=== PATIENT | male | born 1995 | race Asian ===

== ENCOUNTER 2019-12-30 13:32 | Outpatient (CLI) | payer MEDICAID, SELFPAY ==
[2019-12-30 14:04] LABS: HCT 45.4 % (40.0-50.0); HGB 15.5 g/dL (13.5-17.5); Mean Corp. HGB Concentration 34.1 g/dL (32.0-36.0); Mean Corpuscular Hemoglobin 28.7 pg (27.0-33.0); Mean Corpuscular Volume 83.9 fL (80-95); Mean Platelet Volume 9.5 fL (8.0-11.0); Platelet Count 272 x1000/uL (130-400); RBC 5.41 m/cumm (4.50-6.00); RBC Distribution Width 11.5 % (11.8-14.1); White Blood Cell Count 7.37 k/cumm (4.4-10.8)
[2019-12-30 14:45] LABS: BUN 14 mg/dL (7-18); CREATININE 0.68 mg/dL (0.70-1.30)
== END 2019-12-30 13:52 ==
PROVIDERS: PCP Nurse Practitioner Family; Visit Provider Dermatology
DX: L40.0 Psoriasis vulgaris (principal); Z79.899 Other long term (current) drug therapy
CPT/HCPCS: 36415; 84520; 85027; 82565

== ENCOUNTER 2020-03-30 04:29 | Outpatient (CLI) | payer MEDICAID, SELFPAY ==
[2020-03-30 11:54] LABS: HCT 45.8 % (40.0-50.0); HGB 15.4 g/dL (13.5-17.5); Mean Corp. HGB Concentration 33.6 g/dL (32.0-36.0); Mean Corpuscular Hemoglobin 28.8 pg (27.0-33.0); Mean Corpuscular Volume 85.6 fL (80-95); Mean Platelet Volume 9.7 fL (8.0-11.0); Platelet Count 280 x1000/uL (130-400); RBC 5.35 m/cumm (4.50-6.00); RBC Distribution Width 11.4 % (11.8-14.1); White Blood Cell Count 6.02 k/cumm (4.4-10.8)
[2020-03-30 11:55] LABS: BUN 12 mg/dL (7-18); CREATININE 0.72 mg/dL (0.70-1.30)
== END 2020-03-30 04:49 ==
PROVIDERS: PCP Nurse Practitioner Family; Visit Provider Dermatology
DX: L40.0 Psoriasis vulgaris (principal); Z79.899 Other long term (current) drug therapy
CPT/HCPCS: 36415; 84520; 85027; 82565

== ENCOUNTER 2021-09-21 02:30 | Outpatient (CLI) | payer MEDICAID, SELFPAY ==
[2021-09-21 13:38] LABS: Anion Gap 8.3 mmol/L (3-11); BUN 11 mg/dL (7-18); CO2 29.7 mmol/L (21.0-32.0); CREATININE 0.6 mg/dL (0.70-1.30); Calcium 9.3 mg/dL (8.5-10.1); Calculated LDL 104 mg/dL (<100); Chloride 97 mmol/L (98-107); Cholesterol 208 mg/dL (<200); Glucose 237 mg/dL (74-106); HDL Cholesterol 40 mg/dL (40-60); Potassium 4.4 mmol/L (3.5-5.1); Sodium 135 mmol/L (136-145); Triglyceride 323 mg/dL (<150)
[2021-09-22 11:18] LABS: Hepatitis C Ab w Rflx HCV PCR Negative (Negative)
[2021-09-22 11:22] LABS: HIV-1/2 Ag & Ab Screen Negative (Negative)
== END 2021-09-21 02:31 | disposition home or self-care (01) ==
LOC: LBO 02:30
PROVIDERS: PCP Nurse Practitioner Family; Visit Provider Nurse Practitioner Family
DX: Z13.1 Encounter for screening for diabetes mellitus (principal); Z13.220 Encounter for screening for lipoid disorders; Z11.4 Encounter for screening for human immunodeficiency virus [HIV]; Z11.59 Encounter for screening for other viral diseases
CPT/HCPCS: 36415; 80048; 80061; 86803; 87389

== ENCOUNTER 2021-10-03 03:58 | Outpatient (CLI) | payer MEDICAID, SELFPAY ==
[2021-10-03 20:40] LABS: Hemoglobin A1C 8.8 % (<5.7)
== END 2021-10-03 03:59 | disposition home or self-care (01) ==
LOC: LBO 03:58
PROVIDERS: PCP Nurse Practitioner Family; Visit Provider Nurse Practitioner Family
DX: R73.01 Impaired fasting glucose (principal)
CPT/HCPCS: 36415; 83036

== ENCOUNTER 2021-11-01 02:00 | Outpatient (CLI) | payer MEDICAID, SELFPAY ==
[2021-11-06 12:10] LABS: ZnT8 Antibodies <15.0 U/mL (<15.0)
== END 2021-11-01 02:01 | disposition home or self-care (01) ==
LOC: LBO 02:00
PROVIDERS: PCP Nurse Practitioner Family; Visit Provider Nurse Practitioner Family
DX: E11.9 Type 2 diabetes mellitus without complications (principal)
CPT/HCPCS: 36415; 86337; 86341

== ENCOUNTER 2022-01-19 10:31 | Outpatient (REF) | payer MEDICAID, SELFPAY ==
[2022-01-19 16:47] LABS: COMMENT (LAB VIEW ONLY) 45.08 mg/dL; Microalb ug/mg Crea 56.3 ug/mg Cr
== END 2022-01-19 10:32 | disposition home or self-care (01) ==
LOC: LBN 10:31
PROVIDERS: PCP Nurse Practitioner Family; Visit Provider Nurse Practitioner Family
DX: E11.9 Type 2 diabetes mellitus without complications (principal)
CPT/HCPCS: 82043; 82570

== ENCOUNTER 2022-12-06 01:58 | Outpatient (CLI) | payer MEDICAID, SELFPAY ==
[2022-12-06 13:40] LABS: Hemoglobin A1C 6.3 % (<5.7)
[2022-12-06 14:16] LABS: COMMENT (LAB VIEW ONLY) 48.85 mg/dL
[2022-12-06 14:25] LABS: ALT 25 U/L (16-63); AST 27 U/L (15-37); Albumin 4.4 g/dL (3.4-5.0); Alkaline Phosphatase 43 U/L (46-116); Anion Gap 10.1 mmol/L (3-11); BUN 10 mg/dL (7-18); Bilirubin, Total 0.9 mg/dL (0.2-1.0); CO2 27.9 mmol/L (21.0-32.0); CREATININE 0.7 mg/dL (0.70-1.30); Calcium 9.4 mg/dL (8.5-10.1); Calculated LDL 77 mg/dL (<100); Chloride 99 mmol/L (98-107); Cholesterol 171 mg/dL (<200); Estimated GFR 131.14 (mL/min/1.73m2); Glucose 122 mg/dL (74-106); HDL Cholesterol 40 mg/dL (40-60); Potassium 3.6 mmol/L (3.5-5.1); Sodium 137 mmol/L (136-145); TSH (W/Ref FT4) 1.46 uIU/mL (0.36-3.74); Total Protein 8.6 g/dL (6.4-8.2); Triglyceride 273 mg/dL (<150)
[2022-12-06 14:41] LABS: Microalb ug/mg Crea 140.2 ug/mg Cr
== END 2022-12-06 01:59 | disposition home or self-care (01) ==
LOC: LBO 01:58
PROVIDERS: PCP Nurse Practitioner Family; Visit Provider Nurse Practitioner Family
DX: E11.9 Type 2 diabetes mellitus without complications (principal); E78.5 Hyperlipidemia, unspecified; R63.5 Abnormal weight gain
CPT/HCPCS: 36415; 80053; 80061; 82043; 82570; 83036; 84443

== ENCOUNTER 2023-12-27 03:37 | Outpatient (CLI) | payer MEDICAID, SELFPAY ==
[2023-12-27 10:31] LABS: Anion Gap 8.8 mmol/L (3-11); BUN 10 mg/dL (7-18); CO2 26.2 mmol/L (21.0-32.0); CREATININE 0.7 mg/dL (0.70-1.30); Calcium 9.2 mg/dL (8.5-10.1); Chloride 100 mmol/L (98-107); Estimated GFR 130.32 (mL/min/1.73m2); Glucose 209 mg/dL (74-106); Sodium 135 mmol/L (136-145)
== END 2023-12-27 03:38 | disposition home or self-care (01) ==
LOC: LBO 03:37
PROVIDERS: Absent Provider Nurse Practitioner Family; PCP Nurse Practitioner Family; Visit Provider Nurse Practitioner Family
DX: Z51.81 Encounter for therapeutic drug level monitoring (principal)
CPT/HCPCS: 36415; 80048